=== PATIENT | male | born 1990 | race Caucasian/White ===

== ENCOUNTER 2023-05-22 09:12 | Emergency (ER) | payer BC, OTHER ==
[~2023-05-22] VITALS: Ht 172.7 cm; Wt 160.0 kg
[2023-05-22 09:13] VITALS: TEMP 97.8
[2023-05-22 09:23] VITALS: BP 163/102; PULSE 117; RESP 16; O2SAT 95
== END 2023-05-22 10:19 | disposition home or self-care (01) ==
LOC: ER 09:13
DX: I83.892 Varicose veins of left lower extremity with other complications (principal); M79.662 Pain in left lower leg; R22.42 Localized swelling, mass and lump, left lower limb
CPT/HCPCS: 93971; 99284